=== PATIENT | female | born 2000 ===

== ENCOUNTER 2021-10-31 04:48 | Inpatient (IN) | payer SELFPAY ==
[2021-10-31] MEDS ORDERED: LIDOCAINE (2%) 20 MG/1 ML VIAL 20 ML MDV INFILTRATI NR (06:47)
[2021-10-31] MEDS ORDERED: AMPICILLIN/NS 2 GM/100 ML 2 GM/100 ML BAG IV ONE (07:00)
[2021-10-31] MEDS ORDERED: BUTORPHANOL 2 MG/1 ML INJ IV PRN (07:00)
[2021-10-31] MEDS ORDERED: OXYTOCIN 10 UNIT/1 ML INJ IM PRN (07:00)
[2021-10-31] MEDS ORDERED: METHYLERGONOVINE MALEATE 0.2 MG/ML VIAL IM PRN (07:00)
[2021-10-31] MEDS ORDERED: LOPERAMIDE 2 MG CAP PO PRN (07:00)
[2021-10-31] MEDS ORDERED: TERBUTALINE 1 MG/1 ML INJ SUB-Q PRN (07:00)
[2021-10-31] MEDS ORDERED: CARBOPROST TROMETHAMINE 250 MCG/1 ML INJ IM PRN (07:00)
[2021-10-31] MEDS ORDERED: ACETAMINOPHEN 325 MG TAB PO PRN (07:00)
[2021-10-31] MEDS ORDERED: miSOPROStol 200 MCG TAB PR PRN (07:00)
[2021-10-31] MEDS ORDERED: ePHEDrine SULFATE 50 MG/1 ML INJ IV PRN (07:00)
[2021-10-31] MEDS ORDERED: OXYTOCIN DRIP 30 UNITS/500 ML BAG IV SCH ×2 (07:00)
[2021-10-31] MEDS ORDERED: ONDANSETRON 4 MG/2 ML INJ IV PRN ×2 (07:00→15:49)
[2021-10-31] MEDS ORDERED: LACTATED RINGERS 1,000 ML IV SCH (07:00)
[2021-10-31] MEDS ORDERED: fentaNYL 100 MCG/2 ML INJ IV PRN (07:00)
[2021-10-31 07:06] LABS: Hematocrit 33.3 % (30.3-42.9); Hemoglobin 11.2 gm/dl (10.1-14.3); Mean Corpuscular HGB Conc 34 % (30-34); Mean Corpuscular Volume 87 fl (79-97); Platelet Count 154 K/mm3 (140-440); Red Blood Count 3.83 M/mm3 (3.65-5.03); Red Cell Distribution Width 15.9 % (13.2-15.2)
--- NOTE | 2021-10-31 11:40 | Procedure Note ---
OB Delivery Note - Delivery Date of Delivery: 10/31/21 Surgeon: PRIYA MARK Estimated blood loss: 200cc - Vaginal Delivery presentation: vertex Delivery position: OA Intrapartum events: no care, precipitous labor- <3hr Delivery induction: none Delivery monitor: external FHT, external uterine Route of delivery: Delivery placenta: spontaneous Delivery cord: 3 umbilical vessels Episiotomy: none Delivery laceration: none Anesthesia: none Delivery comments: Viable small female delivered over intact perineum. It has not seen he has cry and was placed onto the maternal abdomen. Cord was clamped and cut and infant was handed to NICU secondary to appearing earlier than stated gestational age. Patient has had no care therefore it is only approximately. Patient also delivered spontaneously and intact. Infant weight was 4 pounds 11 ounces Apgars were 8 and 9. There are no lacerations noted. There was excellent hemostasis. The patient tolerated the procedure well
[2021-10-31 12:05] LABS: Basophils % (Auto) 0.3 % (0.0-1.8); Eosinophils % (Auto) 0.5 % (0.0-4.3); Hematocrit 33.4 % (30.3-42.9); Lymphocytes # (Auto) 0.9 K/mm3 (1.2-5.4); Lymphocytes % (Auto) 10.3 % (13.4-35.0); Mean Corpuscular HGB Conc 33 % (30-34); Mean Corpuscular Volume 87 fl (79-97); Monocytes # (Auto) 0.3 K/mm3 (0.0-0.8); Monocytes % (Auto) 3.2 % (0.0-7.3); Platelet Count 138 K/mm3 (140-440); Red Blood Count 3.83 M/mm3 (3.65-5.03); Red Cell Distribution Width 16.1 % (13.2-15.2)
[2021-10-31] MEDS ORDERED: LANOLIN/ZINC/DIMETHICONE (LANSINOH) 7 GM TP PRN (15:49)
[2021-10-31] MEDS ORDERED: diphenhydrAMINE 25 MG CAP PO PRN (15:49)
[2021-10-31] MEDS ORDERED: PROMETHAZINE 25 MG TAB PO PRN (15:49)
[2021-10-31] MEDS ORDERED: WITCH HAZEL/ GLYCERIN PAD TP PRN (15:49)
[2021-10-31] MEDS ORDERED: MAGNESIUM HYDROXIDE (MOM) ORAL LIQD UDC PO PRN (15:49)
[2021-10-31] MEDS ORDERED: PROMETHAZINE 25 MG RECT SUPP PR PRN (15:49)
[2021-10-31] MEDS ORDERED: HYDROcodone/ACETAMINOPHEN 5-325 MG TAB PO PRN (15:49)
[2021-10-31] MEDS: IBUPROFEN 600 MG TAB PO SCH (18:21)
[2021-10-31] MEDS ORDERED: MINERAL OIL 30 ML ORAL LIQD PO PRN (22:00)
[2021-11-01] MEDS: IBUPROFEN 600 MG TAB PO SCH ×4 (00:02→18:30)
[2021-11-01] MEDS: DOCUSATE SODIUM 100 MG CAP PO SCH ×2 (00:03→11:54)
[2021-11-01 02:01] LABS: Hematocrit 30.9 % (30.3-42.9); Hemoglobin 10.3 gm/dl (10.1-14.3)
[2021-11-01] MEDS ORDERED: PRENATAL VIT27-FE FUMARATE-FOLIC ACID VIT TAB PO SCH (10:00)
--- NOTE | 2021-11-01 16:30 | Progress Note ---
Assessment and Plan - Patient Problems (1) Status post vaginal delivery Current Visit: Yes Status: Acute Plan to address problem: Stable. Subjective - Subjective Date of service: 11/01/21 Principal diagnosis: Status post vag delivery day 1. Interval history: yesterday after SROM at home about 10 hrs earlier. Patient reports: appetite normal, pain well controlled, ambulating normally [place]: doing well Objective - Vital Signs Latest vital signs: Vital Signs Temp Pulse Resp BP BP Pulse Ox Pulse Ox 11/01/21 08:02 97.8 F 76 16 106/77 98 11/01/21 07:50 98 11/01/21 05:08 98 11/01/21 03:45 98 11/01/21 01:35 98 11/01/21 01:21 98.1 F 57 L 20 109/69 99 11/01/21 00:03 98 10/31/21 21:45 98 10/31/21 20:50 98.3 F 55 L 18 124/84 100 10/31/21 20:40 98 Intake and Output 11/01/21 11/01/21 11/01/21 07:59 15:59 23:59 Intake Total 480 480 Output Total 300 Balance 180 480 Intake: Oral 480 480 Output: Urine 300 Void 300 Other: Total, Intake Amount 120 360 Total, Output Amount 300 # Voids Void 1 1 - Exam Lungs: Present: Normal air movement Abdomen: Present: normal appearance, soft Extremities: Present: normal Deep Tendon Reflex Grade: Normal +2
--- NOTE | 2021-11-01 16:37 | History and Physical Report ---
History of Present Illness Date of examination: 10/31/21 Date of admission: 10/31/21 06:47 Chief complaint: SROM at 37 weeks. History of present illness: SROM at home about 10 hrs earlier. Past History Past Medical History: no pertinent history - Obstetrical History : 2 Medications and Allergies Allergies Allergy/AdvReac Type Severity Reaction Status Date / Time No Known Allergies Allergy Unverified 10/31/21 06:20 Active Meds: Active Medications Hydrocodone Bitart/Acetaminophen (Hydrocodone/Acetaminophen 5-325 Mg Tab) 2 each PO Q6H PRN PRN Reason: Pain, Moderate (4-6) Bisacodyl (Bisacodyl 10 Mg Rect Supp) 10 mg TN BID PRN PRN Reason: Constipation Diphenhydramine HCl (Diphenhydramine 25 Mg Cap) 25 mg PO Q6H PRN PRN Reason: Itching Docusate Sodium (Docusate Sodium 100 Mg Cap) 100 mg PO BID [facility] Last Admin: 11/01/21 11:54 Dose: 100 mg Ibuprofen (Ibuprofen 600 Mg Tab) 600 mg PO Q6H [facility] Last Admin: 11/01/21 11:53 Dose: 600 mg Magnesium Hydroxide (Magnesium Hydroxide (Mom) Oral Liqd Udc) 30 ml PO HS PRN PRN Reason: Constipation Multi-Ingredient Ointment (Lanolin/Zinc/Dimethicone (Lansinoh) 7 Gm) 1 applic TP PRN PRN PRN Reason: Sore Nipples Multivitamins/Iron/Calcium ( Jus50-Nn Fumarate-Folic Acid Vit Tab) 1 each PO QDAY [facility] Last Admin: 11/01/21 11:55 Dose: 1 each Ondansetron HCl (Ondansetron 4 Mg/2 Ml Inj) 4 mg IV Q8H PRN PRN Reason: Nausea And Vomiting Promethazine HCl (Promethazine 25 Mg Rect Supp) 25 mg TN Q6H PRN PRN Reason: Nausea And Vomiting Promethazine HCl (Promethazine 25 Mg Tab) 25 mg PO Q6H PRN PRN Reason: Nausea And Vomiting Witch Katia/Glycerin (Witch Katia/ Glycerin Pad) 1 each TP PRN PRN PRN Reason: Hemorrhoid/cleansing/soothing Review of Systems All systems: negative Genitourinary: contractions - Vital Signs Vital signs: Vital Signs Temp 98.6 F 10/31/21 05:10 Temp Pulse Resp BP Pulse Ox 97.8 F 76 16 106/77 98 11/01/21 08:02 11/01/21 08:02 11/01/21 08:02 11/01/21 08:02 11/01/21 08:02 - Obstetrical Cervical Dilatation: 10 Results Result Diagrams: 11/01/21 01:48 All other labs normal. Assessment and Plan - Patient Problems (1) Status post vaginal delivery Current Visit: Yes Status: Acute (2) Active labor at term Current Visit: Yes Status: Acute Plan to address problem: Delivered before my arrival by Dale SKY.
--- NOTE | 2021-11-01 16:38 | Discharge Summary ---
Providers - Providers Date of Admission: 10/31/21 06:47 Date of discharge: 11/01/21 Attending physician: ROSETTA ALVAREZ MD 10/31/21 18:48 Consult to Case Management [CONS] Routine Services Needed at Discharge: Other Notified:: N/A Phone number called:: Ext. [phone] Was contact made?: No If yes, spoke with:: N/A Time called:: 18:49 Additional Physician Instructions: Limited care Primary care physician: [facility] Hospitalization Reason for admission: active labor, IUP at term Episiotomy: none Laceration: none Other procedures: none complications: none Discharge diagnosis: IUP at term delivered baby: female Condition at discharge: Good Disposition: 30 STILL A PATIENT - Discharge Diagnoses (1) Status post vaginal delivery Status: Acute (2) Active labor at term Status: Resolved Plan - Provider Discharge Summary Activity: routine, no sex for 6 weeks, no heavy lifting 4 weeks, no strenuous exercise Diet: routine Instructions: routine Additional instructions: [] Smoking cessation referral if applicable(refer to patient education folder for contact #) [] Refer to [facility] Booklet Call your doctor immediately for: * Fever > 100.5 * Heavy vaginal bleeding ( >1 pad per hour) * Severe persistent headache * Shortness of breath * Reddened, hot, painful area to leg or breast * Drainage or odor from incision. * Keep incision clean and dry at all times and follow doctor's instructions regarding bathing/showering - Follow up plan Follow up: PRIMARY MD ANTONINA [Primary Care Provider] - 7 Days
[2021-11-01 17:05] VITALS: BP 112/77
== END 2021-11-01 20:15 | disposition home or self-care (01) | DRG 807 ==
LOC: TRG 04:48 → APU 04:50 → LD 06:32 → TRG 06:47 → LD 06:47 → OB 11:17
PROVIDERS: ADMIT Obstetrics & Gynecology; ATTEND Obstetrics & Gynecology
PROC: 10E0XZZ Delivery of Products of Conception, External Approach (ICD-10-PCS; principal; 2021-10-31)
DX: O62.3 Precipitate labor (principal); Z37.0 Single live birth; Z20.822 Contact with and (suspected) exposure to COVID-19; Z3A.37 37 weeks gestation of pregnancy
CPT/HCPCS: 36415; 85014; 85018; 85025; 85027; 86592; 86706; 86762; 86850; 86900; 86901; 87806; 88307; G0378; J0290; U0003